=== PATIENT | male | born 1955 | race Two or more races ===

== ENCOUNTER 2018-10-30 13:23 | Outpatient (RCR) | payer MEDICARE, MEDICAID ==
[~2018-10-30] VITALS: Ht 162.6 cm; Wt 68.0 kg
== END 2018-11-17 | disposition home or self-care (01) ==
LOC: WCC 13:23
DX: E11.621 Type 2 diabetes mellitus with foot ulcer (principal); L97.413 Non-pressure chronic ulcer of right heel and midfoot with necrosis of muscle; L97.422 Non-pressure chronic ulcer of left heel and midfoot with fat layer exposed; I10 Essential (primary) hypertension
CPT/HCPCS: 11042; 11043; 11045

== ENCOUNTER 2018-11-27 13:36 | Outpatient (RCR) | payer MEDICARE, MEDICAID ==
[~2018-11-27] VITALS: Ht 162.6 cm; Wt 68.0 kg
== END 2018-12-17 | disposition home or self-care (01) ==
LOC: WCC 13:36
DX: E11.621 Type 2 diabetes mellitus with foot ulcer (principal); L97.413 Non-pressure chronic ulcer of right heel and midfoot with necrosis of muscle; L97.422 Non-pressure chronic ulcer of left heel and midfoot with fat layer exposed; I10 Essential (primary) hypertension
CPT/HCPCS: 97597; 97598